=== PATIENT | female | born 1985 | race Caucasian/White ===

== ENCOUNTER 2016-12-15 14:44 | Emergency (ER) | payer MEDICAID ==
[~2016-12-15] VITALS: Ht 175.3 cm; Wt 117.9 kg
[2016-12-15 14:50] VITALS: BP_SYST 152
[2016-12-15 15:26] LABS: BASOPHILS % (AUTO) 0.5 % (0.0-2.0); EOSINOPHILS # (AUTO) 0.2 K/uL (0.0-0.4); EOSINOPHILS % (AUTO) 2.8 % (0.0-4.0); HEMOGLOBIN 14.9 g/dL (12.0-16.0); LYMPHOCYTES # (AUTO) 1.6 K/uL (1.0-5.5); LYMPHOCYTES % (AUTO) 21.8 % (20.5-51.5); MEAN CORPUSCULAR HEMOGLOBIN 32 pg (27-31); MEAN CORPUSCULAR HGB CONC 33 % (32-36); MEAN CORPUSCULAR VOLUME 96 fL (79.0-98.0); MONOCYTES # (AUTO) 0.5 K/uL (0.0-1.0); MONOCYTES % (AUTO) 6.7 % (1.7-9.3); NEUTROPHILS # (AUTO) 4.9 K/uL (1.8-7.7); NEUTROPHILS % (AUTO) 68.2 % (40.0-70.0); PLATELET COUNT (AUTO) 239 K/uL (130-430); RED BLOOD CELL COUNT(AUTO) 4.68 MIL/uL (4.2-6.2); RED CELL DISTRIBUTION WIDTH 11.9 % (9.0-15.0); WHITE BLOOD COUNT (AUTO) 7.3 K/uL (4.8-10.8)
[2016-12-15 15:36] LABS: CALCIUM 9.5 mg/dL (8.4-11.0); CREATININE 0.72 mg/dL (0.55-1.30); POTASSIUM 3.8 mmol/L (3.5-5.1)
[2016-12-15] MEDS: ACETAMINOPHEN 325 MG TABLET PO ONE (16:24)
[2016-12-15 17:06] VITALS: BP_SYST 121
== END 2016-12-15 17:10 | disposition home or self-care (01) ==
LOC: SED 14:44
DX: R07.89 Other chest pain (principal); R06.02 Shortness of breath; R05 Cough; Z88.8 Allergy status to other drugs, medicaments and biological substances
CPT/HCPCS: 36415; 71020; 73030; 80048; 81025; 83880; 84484; 84703; 85025; 85379; 93005; 99285; J7030

== ENCOUNTER 2018-04-30 18:12 | Emergency (ER) | payer MEDICAID ==
[~2018-04-30] VITALS: Ht 175.3 cm; Wt 115.7 kg
[2018-04-30 18:26] VITALS: BP_SYST 153
--- NOTE | 2018-04-30 18:26 | NUR ---
Patient to ER bed 5 to gown for evaluation. Side rails up. Report received from MATT Hawkins.
--- NOTE | 2018-04-30 18:39 | NUR ---
Pt complains of lower back pain for about a week. Pt states pain has gotten worse. Pt states "sometimes it hurts when I go number 2." Pt denies pain/burning upon urination. No N/V, fever but states she's been having "night sweats for a while." No other injuries/complaints per patient or noted.
--- NOTE | 2018-04-30 18:55 | NUR ---
ER GENEVA Kirkland at bedside examining patient.
[2018-04-30 19:12] LABS: BILIRUBIN,URINE NEGATIVE (NEGATIVE); BLOOD, URINE NEGATIVE (NEGATIVE); CLARITY/URINE CLEAR (CLEAR); COLOR,URINE YELLOW (YELLOW); GLUCOSE,URINE NEGATIVE (NEGATIVE); KETONES,URINE NEGATIVE (NEGATIVE); LEUKOCYTE ESTERASE ,URINE NEGATIVE (NEGATIVE); NITRITE, URINE NEGATIVE (NEGATIVE); PROTEIN URINE NEGATIVE (NEGATIVE); UROBILINOGEN,URINE 0.2 (0.2-1.0)
[2018-04-30] MEDS ORDERED: DIAZEPAM 10 MG/2 ML DISP.SYRIN IM ONE (19:15)
--- NOTE | 2018-04-30 19:39 | NUR ---
Note nyone in EDM - 04/30/18 at 1941 by [email or web address] Pt complains of lower back pain for about a week. Pt states pain has gotten worse. Pt states "sometimes it hurts when I go number 2." Pt denies pain/burning upon urination. No N/V, fever but states she's been having "night sweats for a while." No other injuries/complaints per patient or noted.
[2018-04-30] MEDS ORDERED: LORazepam 1 MG TABLET PO ONE ×2 (19:45→20:15)
--- NOTE | 2018-04-30 20:20 | NUR ---
No adverse reactions noted after medication administration. Will continue to monitor.
[2018-04-30] MEDS ORDERED: CYCLOBENZAPRINE HCL 10 MG TABLET (FLEXERIL) PO ONE (20:30)
[2018-04-30 20:50] VITALS: BP_SYST 142
--- NOTE | 2018-04-30 20:50 | NUR ---
Patient given written and verbal discharge instructions and verbalizes understanding. ER MD discussed with patient the results and treatment provided. Patient in stable condition. ID arm band removed. Rx of Soma, Tylenol ES, Voltaren given. Patient educated on pain management and to follow up with PMD. Pain Scale 2/10 tolerable to patient. Opportunity for questions provided and answered. Medication side effect fact sheet provided.
== END 2018-04-30 20:50 | disposition home or self-care (01) ==
LOC: SED 18:12
DX: S39.012A Strain of muscle, fascia and tendon of lower back, initial encounter (principal); F17.210 Nicotine dependence, cigarettes, uncomplicated; R03.0 Elevated blood-pressure reading, without diagnosis of hypertension; Z98.84 Bariatric surgery status; X50.0XXA Overexertion from strenuous movement or load, initial encounter; Y93.89 Activity, other specified; Y92.89 Other specified places as the place of occurrence of the external cause; Y99.8 Other external cause status
CPT/HCPCS: 81003; 99283

== ENCOUNTER 2018-05-04 09:47 | Emergency (ER) | payer MEDICAID ==
[~2018-05-04] VITALS: Ht 175.3 cm; Wt 115.7 kg
[2018-05-04 10:06] VITALS: BP_SYST 131
--- NOTE | 2018-05-04 10:10 | NUR ---
Placed in room 3. To gown for exam. Side rails up.
--- NOTE | 2018-05-04 10:15 | NUR ---
Pt presents to ER c/o flu-like symptoms since yesterday. Pt c/o generalized weakness, body aches, sore throat, productive cough w/ green spututm, chills, night sweats. Pt reports pain level 8/10 from generalized body aches and sore throat. Pt reports taking Claritin for the symptoms. Pt in no acute respiratory distress, speaking full sentences, AOX4, ambulatory, denies chest pain or sob.
[2018-05-04] MEDS ORDERED: KETOROLAC TROMETHAMINE 60 MG/2 ML VIAL IM ONE (10:30)
--- NOTE | 2018-05-04 10:32 | NUR ---
ER Dr. Valles at bedside examining patient.
--- NOTE | 2018-05-04 10:42 | NUR ---
Pt medicated as ordered by Dr. Valles. Pt tolerated well; will continue to monitor.
[2018-05-04 11:05] VITALS: BP_SYST 131
--- NOTE | 2018-05-04 11:05 | NUR ---
Patient given written and verbal discharge instructions and verbalizes understanding. ER MD discussed with patient the results and treatment provided. Patient in stable condition. ID arm band removed. Rx of Prednisone & Sudafed given. Patient educated on pain management and to follow up with PMD. Pain Scale 3/10. Opportunity for questions provided and answered. Medication side effect fact sheet provided.
== END 2018-05-04 11:05 | disposition home or self-care (01) ==
LOC: SED 09:47
DX: J06.9 Acute upper respiratory infection, unspecified (principal); J02.9 Acute pharyngitis, unspecified; R05 Cough; R03.0 Elevated blood-pressure reading, without diagnosis of hypertension; F17.210 Nicotine dependence, cigarettes, uncomplicated; Z98.84 Bariatric surgery status
CPT/HCPCS: 96372; 99283; J1885

== ENCOUNTER 2022-08-13 09:50 | Emergency (ER) | payer MEDICAID, OTHER ==
[~2022-08-13] VITALS: Ht 175.3 cm; Wt 115.7 kg
--- NOTE | 2022-08-13 10:00 | NUR ---
Placed in room 06 . Placed on radiation monitor, blood pressure machine and pulse oximeter. To gown for exam. Side rails up.
[2022-08-13 10:01] VITALS: BP_SYST 131
--- NOTE | 2022-08-13 10:15 | NUR ---
ER DR VALADEZ AT THE BEDSIDE EXAMINING PT
[2022-08-13] MEDS ORDERED: ONDANSETRON HCL 4 MG/2 ML VIAL IVP ONE ×2 (10:30→12:45)
[2022-08-13] MEDS ORDERED: NACL 0.9% 1,000 ML IV ONE ×2 (10:30→14:30)
[2022-08-13] MEDS ORDERED: FAMOTIDINE PF 20 MG/2 ML VIAL IVP ONE (10:30)
[2022-08-13] MEDS ORDERED: MORPHINE 4 MG INJ. 4 MG/ML VIAL IVP ONE ×2 (10:30→12:45)
--- NOTE | 2022-08-13 10:56 | NUR ---
CONSENT FOR CTA SIGNED
--- NOTE | 2022-08-13 11:00 | NUR ---
PT STATES SHE IS UNABLE TO VOID AT THIS TIME
[2022-08-13 11:02] LABS: BASOPHILS # (AUTO) 0.1 K/uL (0.0-0.2); BASOPHILS % (AUTO) 0.6 % (0.0-2.0); EOSINOPHILS # (AUTO) 0.1 K/uL (0.0-0.4); EOSINOPHILS % (AUTO) 0.8 % (0.0-4.0); HEMATOCRIT 40.2 % (36-48); HEMOGLOBIN 13.6 g/dL (12.0-16.0); LYMPHOCYTES # (AUTO) 1.1 K/uL (1.0-5.5); LYMPHOCYTES % (AUTO) 11.6 % (20.5-51.5); MEAN CORPUSCULAR HEMOGLOBIN 36 pg (27-31); MEAN CORPUSCULAR HGB CONC 34 % (32-36); MEAN CORPUSCULAR VOLUME 106 fL (79.0-98.0); MONOCYTES # (AUTO) 0.9 K/uL (0.0-1.0); MONOCYTES % (AUTO) 9.7 % (1.7-9.3); NEUTROPHILS # (AUTO) 7.3 K/uL (1.8-7.7); NEUTROPHILS % (AUTO) 77.3 % (40.0-70.0); PLATELET COUNT (AUTO) 322 K/uL (130-430); RED BLOOD CELL COUNT(AUTO) 3.79 MIL/uL (4.2-6.2); RED CELL DISTRIBUTION WIDTH 13.6 % (9.0-15.0); WHITE BLOOD COUNT (AUTO) 9.5 K/uL (4.8-10.8)
[2022-08-13 11:29] LABS: CHLORIDE 101 mmol/L (98-107); CREATININE 0.68 mg/dL (0.55-1.30); GLUCOSE 107 mg/dL (70-99); UREA NITROGEN, BLOOD 7 mg/dL (8-21)
[2022-08-13 11:36] LABS: ALANINE AMINOTRANSFERASE 48 U/L (12-78); ALBUMIN 3.2 g/dL (3.4-4.8); ASPARTATE AMINOTRANSFERASE 95 U/L (10-37); LIPASE 56 U/L (73-393); TOTAL BILIRUBIN 1.7 mg/dL (0.0-1.0)
[2022-08-13 11:45] LABS: ANION GAP 11 (5-15); GFR AFRICAN AMERICAN 125 mL/min (>90)
[2022-08-13] MEDS ORDERED: KCL 40 mEq in 100 mL (PREMIX) 100 ML IV ONE (12:00)
[2022-08-13] MEDS ORDERED: POTASSIUM CHLORIDE 20 MEQ/PKT PACKET PO ONE (12:00)
[2022-08-13] MEDS ORDERED: iohexoL 350 mgI/mL, 100 ML INFUS..BTL IV ONE (12:31)
--- NOTE | 2022-08-13 14:58 | NUR ---
PT AMBULATES TO BATHROOM WITH STEADY GAIT TO PROVIDE URINE SAMPLE
[2022-08-13] MEDS ORDERED: HYDR-3917 PO (15:16)
[2022-08-13] MEDS ORDERED: OMEP20CA15 PO (15:16)
[2022-08-13] MEDS ORDERED: POTA-197 PO (15:19)
[2022-08-13 15:42] LABS: BILIRUBIN,URINE 1+ (NEGATIVE); BLOOD, URINE NEGATIVE (NEGATIVE); CLARITY/URINE CLEAR (CLEAR); COLOR,URINE YELLOW (YELLOW); GLUCOSE,URINE NEGATIVE (NEGATIVE); KETONES,URINE 1+ (NEGATIVE); LEUKOCYTE ESTERASE ,URINE NEGATIVE (NEGATIVE); NITRITE, URINE NEGATIVE (NEGATIVE); PROTEIN URINE TRACE (NEGATIVE)
[2022-08-13 15:54] LABS: BACTERIA,URINE None Seen /HPF (None Seen); MUCUS,URINE None Seen /LPF (None Seen); RBC,URINE 0-3 /HPF (0-3); WBC,URINE 0-3 /HPF (0-3)
[2022-08-13 16:10] VITALS: BP_SYST 131
== END 2022-08-13 16:09 | disposition home or self-care (01) ==
LOC: SED 09:50
DX: R10.13 Epigastric pain (principal); R11.2 Nausea with vomiting, unspecified; Z79.899 Other long term (current) drug therapy
CPT/HCPCS: 99285; 74175; 96374; 96375; 71045; 96361; 80053; 81000; 83690; 85025; 85379; 84484; 36415; 93005; 96376; 72191; 76376; Q9967; J3490; J2405; J2270; J7030

== ENCOUNTER 2022-09-16 15:11 | Emergency (ER) | payer OTHER ==
[~2022-09-16] VITALS: Ht 175.3 cm; Wt 113.4 kg
[~2022-09-16 15:11] MED LIST: HYDR-3917 PO; OMEP20CA15 PO; POTA-197 PO
[2022-09-16 15:35] VITALS: BP_SYST 113
--- NOTE | 2022-09-16 15:45 | NUR ---
Pt brought by family, A&Ox4, pt presents to ER with bilateral leg pain,foot pain swelling and burning, pt states she was seen at [facility] and was told she had negative US for DVT, also states she had an MRI done indicating pinch nerve, pt VSS, respirations even and unlabored, will cont to monitor
--- NOTE | 2022-09-16 15:45 | NUR ---
Dr Moreira evaluating patient at bedside
[2022-09-16 16:29] LABS: BASOPHILS % (AUTO) 0.6 % (0.0-2.0); EOSINOPHILS # (AUTO) 0.2 K/uL (0.0-0.4); EOSINOPHILS % (AUTO) 3.6 % (0.0-4.0); HEMATOCRIT 39.8 % (36-48); HEMOGLOBIN 13.3 g/dL (12.0-16.0); LYMPHOCYTES # (AUTO) 1.4 K/uL (1.0-5.5); LYMPHOCYTES % (AUTO) 21.5 % (20.5-51.5); MEAN CORPUSCULAR HEMOGLOBIN 34 pg (27-31); MEAN CORPUSCULAR HGB CONC 34 % (32-36); MEAN CORPUSCULAR VOLUME 102 fL (79.0-98.0); MONOCYTES # (AUTO) 0.5 K/uL (0.0-1.0); MONOCYTES % (AUTO) 8.6 % (1.7-9.3); NEUTROPHILS # (AUTO) 4.2 K/uL (1.8-7.7); NEUTROPHILS % (AUTO) 65.7 % (40.0-70.0); PLATELET COUNT (AUTO) 305 K/uL (130-430); RED BLOOD CELL COUNT(AUTO) 3.91 MIL/uL (4.2-6.2); RED CELL DISTRIBUTION WIDTH 13.5 % (9.0-15.0); WHITE BLOOD COUNT (AUTO) 6.3 K/uL (4.8-10.8)
[2022-09-16 16:37] LABS: CALCIUM 9.4 mg/dL (8.4-11.0); CREATININE 0.66 mg/dL (0.55-1.30)
[2022-09-16 16:42] LABS: ALBUMIN 2.9 g/dL (3.4-4.8); TOTAL BILIRUBIN 1.2 mg/dL (0.0-1.0)
[2022-09-16] MEDS ORDERED: KETOROLAC TROMETHAMINE 60 MG/2 ML VIAL IM ONE (18:15)
[2022-09-16 19:09] VITALS: BP_SYST 113
== END 2022-09-16 19:08 | disposition home or self-care (01) ==
LOC: SED 15:11
DX: K52.9 Noninfective gastroenteritis and colitis, unspecified (principal); R60.0 Localized edema; R20.2 Paresthesia of skin; Z98.84 Bariatric surgery status; Z79.899 Other long term (current) drug therapy
CPT/HCPCS: 99285; 93970; 80053; 85025; 36415; 81025; 96372; J1885

== ENCOUNTER 2022-10-18 07:39 | Day surgery (SDC) | payer OTHER ==
[~2022-10-18] VITALS: Ht 175.3 cm; Wt 108.9 kg
[2022-10-18 08:58] LABS: HCG,QUAL RESULT NEGATIVE (NEGATIVE)
[2022-10-18] MEDS ORDERED: methylPREDNISolone ACETATE 40 MG/ML ONE (09:00)
[2022-10-18] MEDS ORDERED: ISOVUE-300 (IOPAMIDOL) 100 ML INFUS..BTL IV ONE (09:00)
[2022-10-18] MEDS ORDERED: LIDOCAINE 2%, 20 ML MDV ONE (09:00)
[2022-10-18] MEDS ORDERED: NORMAL SALINE 10 ML VIAL ONE (09:00)
[2022-10-18] MEDS ORDERED: DIPHENHYDRAMINE INJ 50 MG/ML VIAL ONE (09:08)
[2022-10-18] MEDS: MIDAZOLAM HCL 5 MG/5 ML VIAL ONE ×2 (10:33→10:35)
[2022-10-18] MEDS: fentaNYL CITRATE/PF 100 MCG/2 ML AMP ONE ×2 (10:35→10:36)
[2022-10-18] MEDS ORDERED: MORPHINE 2 MG/ML INJ. SYRINGE IM ONE (12:00)
[2022-10-18] MEDS ORDERED: BACLOFEN 10 MG TABLET PO ONE (12:00)
[2022-10-18 15:51] VITALS: BP_SYST 114
== END 2022-10-18 12:45 | disposition home or self-care (01) ==
LOC: SDS 07:39 → SMU 08:18 → SDS 12:45
PROVIDERS: ATTEND Internal Medicine
DX: M51.16 Intervertebral disc disorders with radiculopathy, lumbar region (principal); M47.816 Spondylosis without myelopathy or radiculopathy, lumbar region; Z20.822 Contact with and (suspected) exposure to COVID-19; Z79.899 Other long term (current) drug therapy
CPT/HCPCS: 36415; 62323; 84703; U0003; J1200; J2001; J1030; J2250; J3010; J2270; Q9967; 76000